=== PATIENT | female | born 1935 | race Hispanic/Latino ===

== ENCOUNTER → 2018-07-20 | Outpatient (CLI) | payer MEDICARE ==
[~2018-07-20] MED LIST: ACET-2247 PO; ACET-66 PO; ATEN50TA PO; CLON1TAB PO; DEXT1DRO OU; DOCU100C33 PO; FAMO-136 PO; FOLI0.8T22 PO; GUAIF10 PO; HYDR25TA PO; LISI40TA4 PO; LOPE2 PO; MAGN400O17 PO; MELA3TAB PO; METF500T PO; MIRT15 PO; SIME120L MC; SIMV40TA59 PO; SOLI5 PO; TRAM50TA4 PO; ZIPR60CA2 PO
== END | disposition home or self-care (01) ==
LOC: RAH 10:36
PROVIDERS: ATTEND Internal Medicine
DX: S42.401A Unspecified fracture of lower end of right humerus, initial encounter for closed fracture (principal); M19.021 Primary osteoarthritis, right elbow; Z91.81 History of falling; X58.XXXA Exposure to other specified factors, initial encounter; Y93.89 Activity, other specified; Y92.89 Other specified places as the place of occurrence of the external cause; Y99.8 Other external cause status
CPT/HCPCS: 73200